=== PATIENT | male | born 1940 | race African-American/Black ===

== ENCOUNTER 2018-03-03 08:59 | Emergency (ER) | payer OTHER ==
[~2018-03-03] VITALS: Ht 180.3 cm; Wt 80.0 kg
[2018-03-03] MEDS ORDERED: SODIUM CHLORIDE 0.9% 1,000 ML IV ONE (09:31)
[2018-03-03 09:59] LABS: BASOPHILS % 0.4 % (0.0-2.0); EOSINOPHILS % 0.4 % (0.0-5.0); HEMATOCRIT. 35.3 % (42.0-52.0); HEMOGLOBIN. 11.5 g/dL (14.0-18.0); LYMPHOCYTES % 7.7 % (20.0-50.0); MEAN CORPUSCULAR HEMOGLOBIN 32.2 pg (28.0-32.0); MEAN CORPUSCULAR VOLUME 99.1 fL (80.0-94.0); MEAN PLATELET VOLUME 8.4 fl (7.4-10.4); MONOCYTES % 11.6 % (2.0-8.0); NEUTROPHILS % 79.9 % (40.0-76.0); PLATELET 293 x1000/uL (130-400); RED BLOOD CELL COUNT 3.56 mill/uL (4.7-6.1); RED CELL DISTRIBUTION WIDTH 13.7 % (11.6-14.6)
[2018-03-03 10:05] LABS: PROTHROMBIN TIME 9.8 sec (9.1-11.1)
[2018-03-03 16:51] VITALS: BP 140/59
== END 2018-03-03 17:05 | disposition short-term general hospital (02) ==
LOC: ER 09:09 → CANBEDREQ 15:01 → ER 17:05
DX: E09.649 Drug or chemical induced diabetes mellitus with hypoglycemia without coma (principal); T38.3X5A Adverse effect of insulin and oral hypoglycemic [antidiabetic] drugs, initial encounter; I12.0 Hypertensive chronic kidney disease with stage 5 chronic kidney disease or end stage renal disease; N18.6 End stage renal disease; Z99.2 Dependence on renal dialysis; Z91.15 Patient's noncompliance with renal dialysis; Y92.018 Other place in single-family (private) house as the place of occurrence of the external cause; Z86.73 Personal history of transient ischemic attack (TIA), and cerebral infarction without residual deficits
CPT/HCPCS: 36415; 70450; 71045; 80053; 82962; 83605; 84145; 84484; 85025; 85610; 87040; 93005; 96360; 96361; 99285; J7030